=== PATIENT | male | born 1980 | race Caucasian/White ===

== ENCOUNTER 2020-03-04 21:51 | Emergency (ER) | payer OTHER ==
[~2020-03-04] VITALS: Ht 198.1 cm; Wt 120.7 kg
[~2020-03-04 21:51] MED LIST: ASPIRIN EC325 MG PO; BENTYL20 MG PO; CARAFATE1 GM/10 ML PO; CLONAZEPAM 1 MG1 M1 PO; HYDROCODONE-AP1 EAC6 PO; HYDROCODONE-APA1 TA1 PO; MOBIC7.5 M1 PO; OMEPRAZOLE 20 M20 M1 PO; ZANTAC 150MG T150 MG PO
[2020-03-04] MEDS ORDERED: ATOVASTATIN (22:10)
[2020-03-04] MEDS ORDERED: LOSARTAN (22:11)
[2020-03-04 22:35] LABS: ABSOLUTE EOSINOPHILS 0.3 thou/uL (0.0-0.7); ABSOLUTE MONOCYTES 0.6 thou/uL (0.0-1.2); ABSOLUTE NEUTROPHILS 6.4 thou/uL (1.6-8.1); BASOPHILS 0.4 %; EOSINOPHILS 2.8 %; HEMATOCRIT 42.7 % (42.0-52.0); HEMOGLOBIN 15.4 gm/dL (14.0-18.0); LYMPHOCYTES 21.9 %; MCH 30.8 pg (26.0-34.0); MCV 85.6 fL (80.0-100.0); MONOCYTES 6.4 %; MPV 7.2 fl. (7.2-11.1); NUCLEATED RBCS 0 /100WBC; PLATELET COUNT* 229 thou/uL (150-400); POLYS 68.5 %; RBC 4.99 mil/uL (4.50-6.00); RDW-CV 13.6 % (10.5-14.5); WBC 9.3 thou/uL (4.0-11.0)
[2020-03-04 22:43] LABS: CREATININE 1.2 mg/dL (0.6-1.3); POTASSIUM 3.6 mmol/L (3.5-5.1)
[2020-03-04 22:46] LABS: PROTIME 10.3 Seconds (9.20-11.50)
[2020-03-04 22:53] LABS: ALBUMIN 4.2 g/dL (3.4-5.0); TOTAL BILIRUBIN 0.3 mg/dL (<0.1-1.0); TOTAL PROTEIN 7.4 g/dL (6.4-8.2)
[2020-03-04 23:28] LABS: URINE BILIRUBIN NEGATIVE (Negative); URINE BLOOD NEGATIVE (Negative); URINE CLARITY CLEAR; URINE COLOR YELLOW; URINE GLUCOSE-RANDOM NEGATIVE (Negative); URINE KETONES TRACE (Negative); URINE LEUKOCYTES-REFLEX NEGATIVE (Negative); URINE NITRITE-REFLEX NEGATIVE (Negative); URINE PROTEIN NEGATIVE (Negative); URINE SPECIFIC GRAVITY 1.025 (1.005-1.030); URINE UROBILINOGEN 0.2 E.U./dl (0.2-1.0)
[2020-03-04 23:34] LABS: AMP/METHAMP Negative (Negative); BARBITURATES Negative (Negative); BENZODIAZEPINES Negative (Negative); COCAINE Negative (Negative); METHADONE Negative (Negative); OPIATES Negative (Negative); PCP Negative (Negative); THC Negative (Negative)
[2020-03-05 00:15] VITALS: BP 135/84
--- NOTE | 2020-03-05 10:45 | EKG ---
[place] [address] ELECTROCARDIOGRAM REPORT Name: ROBBIE WONG Room: [facility]#: [id number] Admission: 03/04/20 Attend Phys: Discharge: 03/05/20 Date of : 76 Date of Service: 03/04/202156 Report #: [id number] THIS REPORT FOR: //name// [facility] ED Test Date: 2020-03-04 Test Time: 21:57:39 Pat Name: ROBBIE WONG Department: Room: Gender: Meat Team Member: MAICO : 1980 Requested By: Mary Cole Order Number: [id number] MD: Jose G Fry Measurements Intervals [place] Rate: 84 P: 43 MI: 170 QRS: -27 QRSD: 92 T: 35 QT: 357 QTc: 422 Interpretive Statements Sinus rhythm Borderline left axis deviation No previous ECG available for comparison Electronically Signed On 03-05-2020 10:44:55 CDT by Jose G Fry [email or web address] <ELECTRONICALLY SIGNED> By: Jose G Fry MD, [facility] 03/05/20 1044 [id number] Jose G Fry MD, FACC /EPI
== END 2020-03-05 00:15 | disposition home or self-care (01) ==
LOC: M.ERS 21:51
PROVIDERS: Emergency Medicine
DX: R07.89 Other chest pain (principal); K21.9 Gastro-esophageal reflux disease without esophagitis; M19.90 Unspecified osteoarthritis, unspecified site; G89.29 Other chronic pain; Z79.899 Other long term (current) drug therapy